=== PATIENT | female | born 1960 | race Asian ===

== ENCOUNTER → 2018-09-29 | Outpatient (CLI) | payer OTHER ==
[2018-09-29 12:51] LABS: ALBUMIN 3.9 g/dL (3.4-5.0); ANION GAP 7 mmol/L (5-15); CALCIUM 8.9 mg/dL (8.5-10.1); CHLORIDE 108 mmol/L (98-107)
[2018-09-29 13:05] LABS: ALANINE AMINOTRANSFERASE 106 U/L (12-78); ALKALINE PHOSPHATASE 82 U/L (45-117); BILIRUBIN,TOTAL 0.5 mg/dL (0.2-1.0); CHOL/HDL RATIO 4.8; CHOLESTEROL, TOTAL 236 mg/dL (140-239); CREATININE 0.62 mg/dL (0.55-1.02); HDL CHOL % 21 % (28-40); HDL CHOLESTEROL (DIRECT) 49 mg/dL (40-60); LDL CHOLESTEROL,CALCULATED 143 mg/dL (54-169); LDL/HDL RATIO 2.9 (0.5-3.0); TOTAL PROTEIN 7.2 g/dL (6.4-8.2); TRIGLYCERIDES 220 mg/dL (50-200); VLDL CHOLESTEROL 44 mg/dL (0-25)
[2018-09-29 13:52] LABS: HEMOGLOBIN A1C 6.1 % (4.2-6.3)
== END | disposition home or self-care (01) ==
LOC: LAB 10:08
PROVIDERS: ATTEND Internal Medicine
DX: I10 Essential (primary) hypertension (principal); M81.0 Age-related osteoporosis without current pathological fracture; E78.2 Mixed hyperlipidemia; E04.1 Nontoxic single thyroid nodule; E66.3 Overweight; Z82.62 Family history of osteoporosis; Z83.3 Family history of diabetes mellitus
CPT/HCPCS: 36415; 80053; 80061; 82306; 83036; 83721; 84443

== ENCOUNTER → 2018-10-05 | Outpatient (CLI) | payer OTHER | END | disposition home or self-care (01) | LOC: RAD 09:38 | PROVIDERS: ATTEND Internal Medicine | DX: E04.1 Nontoxic single thyroid nodule (principal) | CPT/HCPCS: 76536 ==

== ENCOUNTER 2019-11-15 19:33 | Emergency (ER) | payer OTHER ==
[2019-11-15] MEDS ORDERED: ASPIRIN 81 MG TABLET CHEW PO ONE (20:00)
[2019-11-15] MEDS ORDERED: ACETAMINOPHEN 500 MG TABLET ONE (20:09)
[2019-11-15] MEDS ORDERED: ASPIRIN 81 MG TABLET CHEW ONE (20:09)
[2019-11-15] MEDS: ACETAMINOPHEN 500 MG TABLET PO ONE ×2 (20:13→20:30)
[2019-11-15 20:15] LABS: BASOPHILS # (AUTO) 0.03 x10^3/uL (0-0.1); BASOPHILS % (AUTO) 0 % (0-1); EOSINOPHILS # (AUTO) 0.19 x10^3/uL (0-0.4); EOSINOPHILS % (AUTO) 3 % (1-7); LYMPHOCYTES # (AUTO) 2.68 x10^3/uL (1-3.4); LYMPHOCYTES % (AUTO) 38 % (22-44); MD NO; MEAN CORPUSCULAR HEMOGLOBIN 32.5 pg (27.0-34.8); MEAN CORPUSCULAR HGB CONC 33.5 g/dL (32.4-35.8); MEAN CORPUSCULAR VOLUME 96.8 fL (80-100); MEAN PLATELET VOLUME 9.3 fL (7.4-10.4); MONOCYTES # (AUTO) 0.53 x10^3/uL (0.2-0.8); MONOCYTES % (AUTO) 8 % (2-9); NEUTROPHILS # (AUTO) 3.55 x10^3/uL (1.8-6.8); NEUTROPHILS % (AUTO) 51 % (42-75); PLATELET COUNT 232 x10^3/uL (130-400); RED BLOOD COUNT 4.65 x10^6/uL (3.82-5.3); RED CELL DISTRIBUTION WIDTH 13.5 % (9.6-15.2)
[2019-11-15 20:16] LABS: ALANINE AMINOTRANSFERASE 53 U/L (12-78); ALBUMIN 4.1 g/dL (3.4-5.0); ANION GAP 6 mmol/L (5-15); CALCIUM 8.6 mg/dL (8.5-10.1); CHLORIDE 107 mmol/L (98-107); CREATININE 0.82 mg/dL (0.55-1.02)
[2019-11-15 20:20] LABS: ALKALINE PHOSPHATASE 80 U/L (45-117); BILIRUBIN,TOTAL 0.4 mg/dL (0.2-1.0); TOTAL PROTEIN 7.7 g/dL (6.4-8.2); TROPONIN I < 0.015 ng/mL (0.000-0.045)
--- NOTE | 2019-11-15 20:25 | NUR ---
PT PRESENTS TO ED WITH STERNAL CP STARTING TODAY AROUND 1800. PT DENIES CHANGE IN PAIN WITH MOVEMENT OR DEEP BREATHING. CURRENTLY 12/10, DECREASED FROM EARLIER. AT BEDSIDE. BLANKET APPLIED. SIDE RAIL UP, CALL LIGHT IN REACH.
--- NOTE | 2019-11-15 20:41 | NUR ---
SECOND EKG COMPLETED. PT CHART UP FOR RECHECK.
[2019-11-15] MEDS ORDERED: ACETAMINOPHEN 500 MG TABLET PO ONE (21:00)
--- NOTE | 2019-11-15 21:01 | NUR ---
PLAN FOR REPEAT 3 HR TROPONIN. PT AGREES WITH PLAN. NAD NOTED AT THIS TIME. RESPIRATIONS EVEN AND UNLABORED ON RA. VSS. PT REPORTS CP FOCUSED NOW ON LEFT SIDE INSTEAD OF ACROSS ENTIRE CHEST. ADDITIONAL BLANKET APPLIED, SIDE RAIL UP, CALL LIGHT IN REACH.
--- NOTE | 2019-11-15 22:18 | NUR ---
PT RESTING BACK IN BED, LIGHTS DIMMED FOR PT COMFORT. NAD NOTED AT THIS TIME. RESPIRATIONS EVEN AND UNLABORED ON RA. REPORT TO MICHAEL SMITH.
[2019-11-15 23:24] LABS: TROPONIN I < 0.015 ng/mL (0.000-0.045)
[2019-11-16 00:19] VITALS: BP 122/67
== END 2019-11-16 00:22 | disposition home or self-care (01) ==
LOC: ED 11-16 00:18
DX: R07.89 Other chest pain (principal); I10 Essential (primary) hypertension; G43.909 Migraine, unspecified, not intractable, without status migrainosus; Z90.710 Acquired absence of both cervix and uterus
CPT/HCPCS: 36415; 71046; 80053; 84484; 85025; 93005; 99284

== ENCOUNTER → 2020-04-05 | Outpatient (CLI) | payer OTHER ==
[2020-04-05 12:53] LABS: BASOPHILS # (AUTO) 0.01 x10^3/uL (0-0.1); BASOPHILS % (AUTO) 0 % (0-1); EOSINOPHILS # (AUTO) 0.12 x10^3/uL (0-0.4); EOSINOPHILS % (AUTO) 2 % (1-7); LYMPHOCYTES # (AUTO) 2.01 x10^3/uL (1-3.4); LYMPHOCYTES % (AUTO) 39 % (22-44); MD NO; MEAN CORPUSCULAR HEMOGLOBIN 31.7 pg (27.0-34.8); MEAN CORPUSCULAR HGB CONC 33.8 g/dL (32.4-35.8); MEAN CORPUSCULAR VOLUME 93.8 fL (80-100); MEAN PLATELET VOLUME 9.1 fL (7.4-10.4); MONOCYTES # (AUTO) 0.33 x10^3/uL (0.2-0.8); MONOCYTES % (AUTO) 6 % (2-9); NEUTROPHILS # (AUTO) 2.69 x10^3/uL (1.8-6.8); NEUTROPHILS % (AUTO) 52 % (42-75); PLATELET COUNT 227 x10^3/uL (130-400); RED BLOOD COUNT 4.49 x10^6/uL (3.82-5.3); RED CELL DISTRIBUTION WIDTH 13.4 % (9.6-15.2)
[2020-04-05 13:26] LABS: ALANINE AMINOTRANSFERASE 45 U/L (12-78); ANION GAP 5 mmol/L (5-15); CALCIUM 9.3 mg/dL (8.5-10.1); CHLORIDE 106 mmol/L (98-107); CHOLESTEROL, TOTAL 235 mg/dL (140-239); CREATININE 0.71 mg/dL (0.55-1.02)
[2020-04-05 13:36] LABS: ALKALINE PHOSPHATASE 74 U/L (45-117); BILIRUBIN,TOTAL 0.5 mg/dL (0.2-1.0); CHOL/HDL RATIO 4.8; HDL CHOL % 21 % (28-40); HDL CHOLESTEROL (DIRECT) 49 mg/dL (40-60); LDL CHOLESTEROL,CALCULATED 143 mg/dL (54-169); LDL/HDL RATIO 2.9 (0.5-3.0); TOTAL PROTEIN 7.5 g/dL (6.4-8.2); TRIGLYCERIDES 216 mg/dL (50-200); VLDL CHOLESTEROL 43 mg/dL (0-25)
== END | disposition home or self-care (01) ==
LOC: CFH 11:02
PROVIDERS: ATTEND Internal Medicine
DX: E04.1 Nontoxic single thyroid nodule (principal); E66.3 Overweight; E78.2 Mixed hyperlipidemia; G43.909 Migraine, unspecified, not intractable, without status migrainosus; I10 Essential (primary) hypertension; K75.81 Nonalcoholic steatohepatitis (NASH); M81.0 Age-related osteoporosis without current pathological fracture; R73.03 Prediabetes; R74.0 Nonspecific elevation of levels of transaminase and lactic acid dehydrogenase [LDH]; Z82.62 Family history of osteoporosis
CPT/HCPCS: 36415; 80053; 80061; 82306; 83036; 84443; 85025

== ENCOUNTER → 2020-08-18 | Outpatient (CLI) | payer OTHER | END | disposition home or self-care (01) | LOC: CFH 10:19 | PROVIDERS: ATTEND Obstetrics & Gynecology | DX: Z12.31 Encounter for screening mammogram for malignant neoplasm of breast (principal); M81.0 Age-related osteoporosis without current pathological fracture; M85.89 Other specified disorders of bone density and structure, multiple sites | CPT/HCPCS: 77063; 77067; 77080 ==

== ENCOUNTER 2020-12-24 10:42 | Emergency (ER) | payer OTHER ==
[~2020-12-24] VITALS: Ht 154.9 cm; Wt 66.0 kg
--- NOTE | 2020-12-24 11:37 | NUR ---
Peña MAO at bedside. No complaints of pain at this time. Pt resting comfortably. Call light at bedside.
--- NOTE | 2020-12-24 12:00 | NUR ---
Pt to MRI
[2020-12-24 12:06] LABS: BASOPHILS % (AUTO) 1 % (0-1); EOSINOPHILS % (AUTO) 4 % (1-7); LYMPHOCYTES % (AUTO) 38 % (22-44); MEAN CORPUSCULAR HEMOGLOBIN 32.2 pg (27.0-34.8); MEAN CORPUSCULAR HGB CONC 34.3 g/dL (32.4-35.8); MEAN PLATELET VOLUME 8.5 fL (7.4-10.4); MONOCYTES % (AUTO) 8 % (2-9); NEUTROPHILS % (AUTO) 48 % (42-75); PLATELET COUNT 206 x10^3/uL (130-400); RED BLOOD COUNT 4.52 x10^6/uL (3.82-5.3); RED CELL DISTRIBUTION WIDTH 13.5 % (9.6-15.2)
[2020-12-24 12:07] LABS: MD NO
[2020-12-24 12:17] LABS: ALBUMIN 4.1 g/dL (3.4-5.0); ANION GAP 4 mmol/L (5-15); CHLORIDE 108 mmol/L (98-107); CREATININE 0.78 mg/dL (0.55-1.02)
--- NOTE | 2020-12-24 13:40 | NUR ---
Pt back from MRI
--- NOTE | 2020-12-24 14:49 | NUR ---
Pt to x-ray
--- NOTE | 2020-12-24 16:27 | NUR ---
Pt resting comfortably. Awaiting CT. Pt denies any pain.
--- NOTE | 2020-12-24 16:32 | NUR ---
Pt to CT
--- NOTE | 2020-12-24 17:10 | NUR ---
Pt back from CT, resting comfortably
--- NOTE | 2020-12-24 18:00 | NUR ---
ER at bedside to discuss POC.
--- NOTE | 2020-12-24 20:23 | NUR ---
Pt back from MRI. Warm blanket given. Pt states no needs at this time. Pt on montor. VSS. Family at bedside. Warm water given.
[2020-12-24 21:57] VITALS: BP 146/89
--- NOTE | 2020-12-24 21:59 | NUR ---
Pt dc'd to home with written and verbal instructions. Crutches given by madan SKELTON. Pt out of dept in and home with . Pt with stable VS.
[2020-12-26] MEDS ORDERED: PROP60CA PO (09:35)
[2020-12-26] MEDS ORDERED: CALC1CAP8 PO (09:35)
[2020-12-26] MEDS ORDERED: AMLO5TAB4 PO (09:35)
[2020-12-26] MEDS ORDERED: ALEN70TA3 PO (09:35)
[2020-12-26] MEDS ORDERED: LOSA50TA14 PO (09:35)
[2020-12-26] MEDS ORDERED: CHOL10003 PO (09:35)
[2020-12-26] MEDS ORDERED: VITA400T6 PO (09:35)
== END 2020-12-24 22:03 ==
LOC: ED 12:03
DX: S72.325A Nondisplaced transverse fracture of shaft of left femur, initial encounter for closed fracture (principal); R26.0 Ataxic gait; I10 Essential (primary) hypertension; R10.2 Pelvic and perineal pain; G43.909 Migraine, unspecified, not intractable, without status migrainosus; W18.39XA Other fall on same level, initial encounter; Y93.89 Activity, other specified; Y92.89 Other specified places as the place of occurrence of the external cause; Y99.8 Other external cause status
CPT/HCPCS: 36415; 70551; 72141; 72146; 72148; 72170; 80048; 82040; 85025; 99285

== ENCOUNTER 2020-12-27 08:55 | Observation (INO) | payer OTHER ==
[~2020-12-27] VITALS: Ht 154.9 cm; Wt 66.0 kg
[~2020-12-27 08:55] MED LIST: ALEN70TA3 PO; AMLO5TAB4 PO; CALC1CAP8 PO; CHOL10003 PO; LOSA50TA14 PO; PROP60CA PO; VITA400T6 PO
[2020-12-27 09:30] VITALS: BP 135/84
[2020-12-27] MEDS ORDERED: CHLORHEXIDINE 15 ML UDC MM ONE (09:30)
[2020-12-27] MEDS ORDERED: LACTATED RINGERS 1,000 ML IV SCH (09:30)
[2020-12-27] MEDS ORDERED: ACETAMINOPHEN 500 MG TABLET ONE (10:28)
[2020-12-27] MEDS ORDERED: ACETAMINOPHEN 500 MG TABLET PO ONE (10:30)
[2020-12-27] MEDS ORDERED: MIDAZOLAM 1 MG/ML, 2ML ONE (10:31)
[2020-12-27] MEDS ORDERED: FENTANYL PF 250 MCG/5ML ONE (10:34)
[2020-12-27] MEDS ORDERED: PROPOFOL 10 MG/ML, 20ML ONE (10:34)
[2020-12-27] MEDS ORDERED: ROCURONIUM 10MG/ML,5ML ONE (10:35)
[2020-12-27] MEDS ORDERED: DEXAMETHASONE 4 MG/ML, 5ML ONE (10:35)
[2020-12-27] MEDS ORDERED: CEFAZOLIN 1,000 MG ONE (10:35)
[2020-12-27] MEDS ORDERED: SUCCINYLCHOLINE 20 MG/ML, 10ML ONE (10:35)
[2020-12-27] MEDS ORDERED: EPHEDRINE 50 MG/ML, 1ML ONE (10:59)
[2020-12-27] MEDS ORDERED: SUGAMMADEX 200 MG/2 ML IVPush ONE (11:27)
[2020-12-27] MEDS ORDERED: MEPERIDINE/PF 25MG/0.5ML IVPush PRN (11:30)
[2020-12-27] MEDS ORDERED: PROMETHAZINE 25 MG/ML, 1ML IVPush PRN (11:30)
[2020-12-27] MEDS ORDERED: ALBUTEROL SULFATE 2.5 MG/3 ML NPPB PRN (11:30)
[2020-12-27] MEDS ORDERED: DIAZEPAM 5 MG/ML, 2ML IVPush PRN (11:30)
[2020-12-27] MEDS ORDERED: MIDAZOLAM 1 MG/ML, 2ML IV PRN (11:30)
[2020-12-27] MEDS ORDERED: DIPHENHYDRAMINE 50 MG/ML, 1ML IVPush PRN ×2 (11:30)
[2020-12-27] MEDS ORDERED: LABETALOL 5MG/ML, 20ML IV PRN (11:30)
[2020-12-27] MEDS ORDERED: OXYcodone 5 MG/5 ML ORAL.SOL UDC PO PRN (11:30)
[2020-12-27] MEDS ORDERED: ONDANSETRON 2MG/ML, 2ML IVPush PRN ×2 (11:30→12:00)
[2020-12-27] MEDS ORDERED: PROMETHAZINE 12.5 MG SUPP PR PRN (11:30)
[2020-12-27] MEDS ORDERED: EPHEDRINE 50 MG/ML, 1ML IVPush PRN (11:30)
[2020-12-27] MEDS ORDERED: hydrALAzine 20 MG/ML, 1ML IV PRN (11:30)
[2020-12-27] MEDS ORDERED: HYDR-1067 PO (11:37)
[2020-12-27] MEDS ORDERED: FENTANYL PF 100 MCG/2ML ONE ×2 (11:56→12:12)
[2020-12-27] MEDS ORDERED: OXYcodone 5 MG/5 ML ORAL.SOL UDC ONE ×2 (11:56→12:12)
[2020-12-27] MEDS ORDERED: HYDROmorphone 1 MG/ML, 1ML INJ ONE ×3 (11:56→13:03)
[2020-12-27] MEDS: FENTANYL PF 100 MCG/2ML IV PRN ×4 (11:57→12:26)
[2020-12-27] MEDS ORDERED: ALUMINUM/MAG/SIMETHICONE 30 ML UDC PO PRN (12:00)
[2020-12-27] MEDS ORDERED: ENOXAPARIN 40 MG/0.4 ML SQ SCH (12:00)
[2020-12-27] MEDS ORDERED: BISACODYL 10 MG SUPP PR PRN (12:00)
[2020-12-27] MEDS ORDERED: ACETAMINOPHEN 325 MG TABLET PO PRN (12:00)
[2020-12-27] MEDS ORDERED: SENNA/DOCUSATE TABLET PO PRN (12:00)
[2020-12-27] MEDS: KETOROLAC 30 MG/1 ML IVPush SCH ×2 (12:00→21:52)
[2020-12-27] MEDS ORDERED: morphine SULFATE 10 MG/ML, 1ML IVPush PRN (12:00)
[2020-12-27] MEDS ORDERED: PROMETHAZINE 25 MG/ML, 1ML IM PRN (12:00)
[2020-12-27] MEDS ORDERED: OXYcodone/APAP 5/325MG TABLET PO PRN (12:00)
[2020-12-27] MEDS ORDERED: HYDROcodone/APAP 5/325 TABLET PO PRN (12:00)
[2020-12-27] MEDS ORDERED: MAGNESIUM HYDROXIDE 8%, 30ML UDC PO PRN (12:00)
[2020-12-27] MEDS ORDERED: KETOROLAC 30 MG/1 ML ONE (12:03)
[2020-12-27] MEDS: HYDROmorphone 1 MG/ML, 1ML INJ IVPush PRN ×5 (12:07→13:00)
[2020-12-27] MEDS ORDERED: DIAZEPAM 5 MG/ML, 2ML ONE (12:25)
[2020-12-27] MEDS: CEFAZOLIN PMX 1GM/50ML 50 ML IVPB SCH (18:29)
[2020-12-27 19:52] VITALS: BP 114/70
[2020-12-27] MEDS: DOCUSATE 100 MG CAPSULE PO SCH (21:00)
[2020-12-28 01:19] VITALS: BP 100/62
[2020-12-28] MEDS: CEFAZOLIN PMX 1GM/50ML 50 ML IVPB SCH (02:27)
[2020-12-28] MEDS ORDERED: PROPRANOLOL 60 MG CAP.SA.24H PO SCH (06:00)
[2020-12-28] MEDS: KETOROLAC 30 MG/1 ML IVPush SCH (06:05)
[2020-12-28 07:28] VITALS: BP 95/58
[2020-12-28] MEDS: DOCUSATE 100 MG CAPSULE PO SCH (07:50)
[2020-12-28] MEDS ORDERED: AMLODIPINE 5 MG TABLET PO SCH (09:00)
== END 2020-12-28 12:19 | disposition home or self-care (01) ==
LOC: OUT 08:55 → ORIP 11:32 → 4NW 13:24 → DCLOUNGE 12-28 12:08
PROVIDERS: ADMIT Orthopaedic Surgery; ATTEND Orthopaedic Surgery
DX: M84.352A Stress fracture, left femur, initial encounter for fracture (principal); Z20.822 Contact with and (suspected) exposure to COVID-19; M81.0 Age-related osteoporosis without current pathological fracture; I10 Essential (primary) hypertension; Z79.899 Other long term (current) drug therapy; Z90.710 Acquired absence of both cervix and uterus; W18.30XA Fall on same level, unspecified, initial encounter; Y93.89 Activity, other specified; Y92.89 Other specified places as the place of occurrence of the external cause
CPT/HCPCS: 27248; 73501; 76000; 87635; 93005; 96365; 96366; 96372; 96375; 96376; 97165; C1713; G0378; J0330; J0690; J1100; J1170; J1650; J1885; J2250; J2405; J2704; J3010; J3360; J7120